=== PATIENT | female | born 1955 | race Caucasian/White ===

== ENCOUNTER 2020-11-19 06:34 | Day surgery (SDC) | payer MEDICARE, BC ==
[~2020-11-19] VITALS: Ht 165.1 cm; Wt 90.9 kg
[~2020-11-19 06:34] MED LIST: ACETYL L-CARNI1 EACH PO; ACIPHEX20 MG PO; ALEVE220 M1 PO; CLINDAMYCIN HC150 MG PO; FOLGARD TABLET1 EAC1 PO; FOLTX TABLET1 EAC1 PO; NEXIUM20 MG PO
[2020-11-19] MEDS ORDERED: B COMPLEX1 EACH PO (06:52)
[2020-11-19] MEDS ORDERED: ZINC30 M1 PO (06:52)
[2020-11-19] MEDS ORDERED: VITAMIN A2400 MCG PO (06:52)
[2020-11-19] MEDS ORDERED: VITAMIN D3125 MCG PO (06:54)
--- NOTE | 2020-11-19 09:11 | NUR ---
11/19/20 0911 Nona Devlin 0905-PATIENT ARRIVED TO PACU ON 6L MASK NONAROUSABLE. RN HOLDING AIRWAY TO MAINTAIN OPEN RR EVEN. SR. 6 LAP SITES TO ABDOMEN CDI WITH STERI STRIPS IN PLACE. IVF INFUSING 0908-PATIENT REMAINS NONAROUSABLE MAINTAINING OWN AIRWAY. RR EVEN. 6L MASK
[2020-11-19] MEDS ORDERED: OXYCODON-ACETA1 EAC2 PO (09:24)
[2020-11-19] MEDS ORDERED: IBUPROFEN600 MG PO (09:24)
[2020-11-19] MEDS ORDERED: ACETAMINOPHEN500 MG PO (09:25)
--- NOTE | 2020-11-19 09:49 | NUR ---
ICED WATER AND APPLESAUCE GIVEN. CALL LIGHT IS WITHIN REACH. SPOUSE IS AT BEDSIDE.
--- NOTE | 2020-11-19 09:55 | NUR ---
OR STAFF WAITING TO TAKE PT. HAD JUST A MOMENT WITH PT AND SPOUSE TITA. PT SEEMS PREPARED, ALL QUESTIONS ASKED ANSWERED. PT REQUESTED PRAYER, WILL FOLLOW NEEDED
--- NOTE | 2020-11-19 10:48 | NUR ---
PATIENT IS RESTING QUIETLY WITH HER EYES CLOSED WHEN I ENTER THE ROOM. SHE WAKES EASILY WITH VITAL SIGNS, SPLINTS WELL WITH THE ABDOMINAL PILLOW AND IS RESTING QUIETLY UPON MY DEPARTURE. OXYGEN IS TURNED OFF. CONTINUOUS PULSE OXIMETER REMAINS IN PLACE. CALL LIGHT IS WITHIN REACH.
--- NOTE | 2020-11-19 11:49 | NUR ---
PATIENT IS UP TO THE BATHROOM, GUARDED. SHE AMBULATES WELL WITH HER 'S ASSISTANCE AND VOIDS 300 ML OF CLEAR, YELLOW URINE. DISCHARGE INSTRUCTIONS ARE GIVEN AND SHE AND HER VERBALIZE UNDERSTANDING. PATIENT IS GETTING DRESSED IN THE PRESENCE OF HER .
--- NOTE | 2020-11-19 12:18 | NUR ---
LE 1200: PATIENT IS DRESSED AND TRANSFERS HERSELF TO THE WHEELCHAIR AND THEN TO PERSONAL VEHICLE AND SHE TOLERATES THAT WELL.
--- NOTE | 2020-11-22 11:08 | PATH ---
[facility] [address], [place] [address] Signed SPECIMEN(S): A GALLBLADDER SPECIMEN(S): B LIVER BIOPSY SPECIMEN SOURCE: A. GALLBLADDER B. LIVER BIOPSY CLINICAL HISTORY: Chronic cholecystitis FINAL PATHOLOGIC DIAGNOSIS: A. Gallbladder, cholecystectomy (previously incised): - Chronic cholecystitis. B. Liver, needle core biopsy: - Mild steatohepatitis (ITA grade 4 of 9, ITA fibrosis stage 1a of 4). - See description and comment. COMMENT: Additional clinical history regarding the liver biopsy is not provided. However, the histopathology is most consistent with a mildly active steatohepatitis. Steatohepatitis is a nonspecific pattern of injury seen most commonly in the settings of morbid obesity, diabetes, insulin resistance or alcohol abuse. However, the differential diagnosis is broad, and also includes drug reaction, genetic abnormalities, metabolic conditions and malnutrition. Clinical correlation is required in this case. AMB:em:C2NR MICROSCOPIC EXAMINATION: A. Histologic sections of all submitted blocks are examined by light microscopy. These findings, together with the gross examination, support the pathologic diagnosis. B. A biopsy of intact hepatic tissue is reviewed, demonstrating moderate, predominantly large droplet steatosis, with rare foci of small droplet steatosis. Scattered portal tracts are present without evidence of significantly increased periportal inflammation, bile ductular abnormalities or granulomata. The hepatocytes demonstrate a mild degree of ballooning degeneration without evidence of Carmen-Denk bodies. Rare foci of lobular inflammation (predominantly lymphocytes) are also detected. Trichrome and reticulin stains highlight minimally increased pericellular fibrosis. Iron stain PATIENT NAME: MADISON GONZALEZ PATHOLOGY DATE OF : 53 REPORT #: [id number] PHYSICIAN: JAMAICA FERGUSON PCP: DARIUSZ BACH MD REPORT IS CONFIDENTIAL AND NOT TO BE RELEASED WITHOUT AUTHORIZATION [facility] [address], [place] [address] Signed reveals no evidence of increased hepatocellular iron deposition, and PAS with diastase reveals no evidence of intracellular inclusions. Overall, the findings are consistent with mild steatohepatitis, with a non-alcoholic fatty liver disease activity score (ITA) of 4/9, and fibrosis stage 1a/4. AMB:[facility] GROSS DESCRIPTION: Two specimens are received in two containers, labeled "CM." A. The specimen, labeled "CM, A," is received in formalin and consists of: Specimen: Previously incised gallbladder. Dimensions: Upon reconstruction, 4.5 x 2.2 x 2.1 cm. Serosa: Garsia-white, smooth, and glistening. Cystic Duct: 0.4 cm in diameter, patent, and the margin is inked blue. Calculi: Absent within specimen and specimen container. Mucosa: Garsia, velvety, and glistening. Wall thickness: Uniform and 0.2 cm. Lymph node: No pericystic lymph nodes are grossly identified. Additional: None. Food Handler sections are submitted in cassette (A1). B. The specimen, labeled "CM, B," and designated on the requisition "liver biopsy," is received in formalin and consists of one, yellow-orange, 0.1 cm in diameter, 2.2 cm long soft tissue core. The core is inked with eosin and submitted in toto in one cassette (B1). AI (under the direct supervision of a pathologist) The Gross Description was prepared using a voice recognition system. The report was reviewed for accuracy; however, sound-alike word errors, addition and/or deletions may occur. If there is any question about this report, please contact Client Services. PERFORMING LABORATORY: The technical component was performed by [email or web address], [address] [place] [id number] (Electric Golf Cart Repairer: Carley Del Toro MD; CLIA# [id number]). Professional interpretation was performed by [email or web address], [address] [id number] (Electric Golf Cart Repairer: Master Lynch M.D.; CLIA#: [id number]). Diagnostician: Carley Del Toro MD Pathologist Electronically Signed 11/22/2020 PATIENT NAME: MADISON GONZALEZ PATHOLOGY DATE OF : 53 REPORT #: [id number] PHYSICIAN: JAMAICA FERGUSON PCP: DARIUSZ BACH MD REPORT IS CONFIDENTIAL AND NOT TO BE RELEASED WITHOUT AUTHORIZATION [facility] [address] [place] [id number] Signed Copies: ~ PATIENT NAME: MADISON GONZALEZ PATHOLOGY DATE OF : 53 REPORT #: [id number] PHYSICIAN: JAMAICA PATHOLOGY PCP: DARIUSZ BACH MD REPORT IS CONFIDENTIAL AND NOT TO BE RELEASED WITHOUT AUTHORIZATION
--- NOTE | 2020-11-23 13:48 | OR ---
[facility] [address] [place], [place] [address] Signed DATE OF OPERATION: 11/19/2020 SURGEON: Ya Hart MD PREOPERATIVE DIAGNOSIS: Chronic acalculous cholecystitis. POSTOPERATIVE DIAGNOSES: 1. Chronic acalculous cholecystitis. 2. Mild hepatic nodularity. PROCEDURES: 1. Laparoscopic cholecystectomy with intraoperative cholangiogram. 2. Surgeon-directed fluoroscopy. 3. Laparoscopic liver biopsy. ANESTHESIA: General endotracheal; Lam Jacinto, CONTROL SYSTEMS SPECIALIST and local 0.25% Marcaine with epinephrine 20 mL. INDICATION: This 65-year-old white woman is a patient of Dr. Bach initially referred for consideration of possible parathyroid adenoma. The parathyroid adenoma has not been confirmed and operation has not yet been done though ongoing observation and studies are underway. The patient has been noted to have biliary symptoms including right subcostal pain following meals. A gallbladder ultrasound was found to be normal without sign of stones. A CCK-HIDA test was performed showing an ejection fraction of 28% with mild reproduction of her right subcostal pain symptoms. On the basis of these findings, it is highly likely she does say have acalculous cholecystitis for which a cholecystectomy was recommended. The risks of bleeding, infection, bile duct injury, need for open procedure, need for common duct exploration and the possibility of failure to improve her symptoms were all reviewed with her. She understands and wished to proceed. FINDINGS: The gallbladder was chronically inflamed. There were omental adhesions to the undersurface of the gallbladder. The gallbladder once excised had cholesterolosis and chronic inflammatory change of the mucosa. There were no stones. Cholangiogram was normal. Additionally, the liver had a somewhat micronodular appearance not advanced cirrhosis by any means, but likely was disease and on that basis, liver biopsy was obtained Electronically Signed By: YA HART MD 11/23/20 1348 PATIENT NAME: MADISON GONZALEZ OPERATIVE REPORT DATE OF : 53 REPORT #: [id number] PHYSICIAN: YA HART MD PCP: DARIUSZ BACH MD REPORT IS CONFIDENTIAL AND NOT TO BE RELEASED WITHOUT AUTHORIZATION [facility] [address] [place], [place] [address] Signed additionally. DESCRIPTION OF PROCEDURE: The patient was brought to the operating room, given a general endotracheal anesthetic. Preoperative antibiotic Ancef was given. Sequential compression device stockings were used and heparin subcutaneously administered. The abdomen is prepared with chlorhexidine solution and draped sterilely. An infraumbilical incision was made and using an open Nida cannula technique, the abdomen was entered and pneumoperitoneum achieved to a level of 14 mmHg of carbon dioxide gas. Intraabdominal inspection showed no sign of ascites or carcinomatosis. The liver had a somewhat nodular appearance and only mild fatty infiltration. Three additional trocars were placed in usual configuration in the subxiphoid, right midclavicular, and right anterior axillary line. The gallbladder was elevated cephalad and found to have omental adhesions stuck to the undersurface, which were taken down with blunt and electrocautery dissection. Further elevation of the gallbladder was undertaken and dissection was undertaken in the triangle of Calot. The entry into the infundibulum was noted. Spillage of clear bile without stones was also noted. The defect was grasped with instrument allowing for occlusion of the leak and ongoing dissection. Ultimately, the cystic duct was well defined and a clip was then applied across the gallbladder, cystic duct junction and a transverse choledochotomy made in the cystic duct. Using an Mejia type cholangiocatheter, intraoperative cholangiography was undertaken showing free flow of contrast in biliary tree with prompt emptying into the duodenum. The biliary anatomy was conventional. There was no sign of abnormality. The catheter was removed. The cystic duct was triply clipped and divided. The gallbladder was dissected free in a retrograde fashion using electrocautery. The gallbladder was placed in an endobag and extracted through the infraumbilical port site, opened on the back table, found to have chronic inflammatory change of the mucosa. Inspection of subhepatic space showed no sign of bile leak, bleeding or other problem. Given the appearance of the liver and without clear evidence of underlying hepatic risk factor, the liver biopsy was deemed appropriate. The medial segment of left lobe was deemed as appropriate for biopsy site. A percutaneous application of a 14-gauge Biopty gun needle was passed and a biopsy was undertaken. Bleeding from the site was secured with electrocautery and ultimately with some Tisseel as it had persistent oozing. The specimen was considered good and passed for permanent pathology. Excess irrigation of fluid was suctioned free. Removal of the epigastric trocar site showed oozing of blood. Electrocautery was used in this area and a small amount of Tisseel, but there was still some oozing and on that basis, a Danish-Ilana device was used to secure the site with a 0 Vicryl tie. This allowed for complete hemostasis. The excess irrigation fluid and blood were suctioned free and the other trocars were removed without problem. The infraumbilical fascial site was reapproximated with interrupted 0 Vicryl suture and a running 0 PDS suture. Irrigation was undertaken each site and 20 mL of 0.25% Marcaine Electronically Signed By: YA HART MD 11/23/20 7418 PATIENT NAME: MADISON GONZALEZ OPERATIVE REPORT DATE OF : 53 REPORT #: [id number] PHYSICIAN: YA HART MD PCP: DARIUSZ BACH MD REPORT IS CONFIDENTIAL AND NOT TO BE RELEASED WITHOUT AUTHORIZATION [address], [place] [address] Signed with epinephrine was injected locally. The skin was closed with interrupted 3-0 Vicryl. Steri-Strips were applied. She was ultimately extubated and transferred to the recovery room in good condition having suffered no complications. Sponge, needle, and instrument counts were reported as correct x3. MD TEN Marks/KAYLYNN /[id number] cc: Dariusz Bach MD Copies: DARIUSZ BACH MD ~ Electronically Signed By: YA HART MD 11/23/20 1348 PATIENT NAME: MADISON GONZALEZ OPERATIVE REPORT DATE OF : 53 REPORT #: [id number] PHYSICIAN: YA HART MD PCP: DARIUSZ BACH MD REPORT IS CONFIDENTIAL AND NOT TO BE RELEASED WITHOUT AUTHORIZATION
== END 2020-11-19 12:00 | disposition home or self-care (01) ==
LOC: DS 06:34
PROVIDERS: ATTEND Surgery
PROC: BF13YZZ Fluoroscopy of Gallbladder and Bile Ducts using Other Contrast (ICD-10-PCS; 2020-11-19)
PROC: 0FB24ZX Excision of Left Lobe Liver, Percutaneous Endoscopic Approach, Diagnostic (ICD-10-PCS; 2020-11-19)
PROC: 0FT44ZZ Resection of Gallbladder, Percutaneous Endoscopic Approach (ICD-10-PCS; principal; 2020-11-19 06:45)
DX: K81.1 Chronic cholecystitis (principal); K75.81 Nonalcoholic steatohepatitis (NASH); K82.8 Other specified diseases of gallbladder; K21.9 Gastro-esophageal reflux disease without esophagitis; M89.8X9 Other specified disorders of bone, unspecified site; E66.9 Obesity, unspecified; Z68.32 Body mass index [BMI] 32.0-32.9, adult; Z88.8 Allergy status to other drugs, medicaments and biological substances
CPT/HCPCS: 00790; 74300; 88304; 88307; 88313; J0690; J1100; J1644; J1885; J2001; J2405; J2550; J2704; J3010; J7121; Q9967

== ENCOUNTER 2023-05-28 08:41 | Inpatient (IN) | payer MEDICARE, BC ==
[~2023-05-28] VITALS: Ht 165.1 cm; Wt 88.6 kg
[~2023-05-28 08:41] MED LIST changes: +ACETAMINOPHEN500 MG PO; +B COMPLEX1 EACH PO; +IBUPROFEN600 MG PO; +OXYCODON-ACETA1 EAC2 PO; +VITAMIN A2400 MCG PO; +VITAMIN D3125 MCG PO; +ZINC30 M1 PO
[2023-06-02] MEDS ORDERED: FOSAMAX70 MG PO (14:09)
[2023-06-02 14:20] VITALS: BP 119/73
[2023-06-04] MEDS ORDERED: ATORVASTATIN CA80 MG PO (10:05)
[2023-06-04] MEDS ORDERED: DICLOFENAC SODI50 GM TOP (10:06)
[2023-06-04] MEDS ORDERED: MELATONIN3 MG PO (10:06)
[2023-06-17 06:20] VITALS: BP 134/73
[2023-06-17 12:20] VITALS: BP 130/69
[2023-06-17 14:08] VITALS: BP 129/64
[2023-06-17 15:30] VITALS: BP 140/65
[2023-06-17 16:52] VITALS: BP 118/60
[2023-06-17 19:47] VITALS: BP 134/57
[2023-06-18 01:02] VITALS: BP 137/64
[2023-06-18 05:14] VITALS: BP 125/57
[2023-06-18 05:48] LABS: ANION GAP 14.3 (7-21); BUN/CREATININE RATIO 13.09 (6.0-28.6); CALCIUM 9.6 mg/dL (8.5-10.1); CREATININE, SERUM 0.84 mg/dL (0.55-1.02); POTASSIUM 4.3 mmol/L (3.5-5.1)
[2023-06-18 10:10] VITALS: BP 136/64
[2023-06-18 14:25] VITALS: BP 131/62
[2023-06-18 18:08] VITALS: BP 138/64
[2023-06-18 20:02] VITALS: BP 144/68
[2023-06-19 04:48] VITALS: BP 140/61
[2023-06-19 09:43] VITALS: BP 158/70
[2023-06-19 13:48] VITALS: BP 156/74
[2023-06-19 14:46] LABS: PARATHYROID HORMONE,INTACT 59 pg/mL (15-65)
[2023-06-19] MEDS ORDERED: ACETAMINOPHEN500 MG PO (15:35)
--- NOTE | 2023-06-21 08:44 | PATH ---
[facility] [address], [place] [address] Signed SPECIMEN(S): A LEFT LOWER FOLD PARATHYROID SPECIMEN(S): B RIGHT LOWER POLE PARATHYROID SPECIMEN(S): C RIGHT POLE PARATHYROID SPECIMEN(S): D LEFT LOWER POLE LYMPTH NODE SPECIMEN(S): E LEFT THYROID LOBE SPECIMEN(S): F CAROTID SHEATH SPECIMEN(S): G SUPERIOR THYMUS NODULE SPECIMEN SOURCE: A. LEFT LOWER FOLD PARATHYROID B. RIGHT LOWER POLE PARATHYROID C. RIGHT POLE PARATHYROID D. LEFT LOWER POLE LYMPTH NODE E. LEFT THYROID LOBE F. CAROTID SHEATH G. SUPERIOR THYMUS NODULE FROZEN SECTION DIAGNOSIS: A. left lower fold normal parathyroid: Lymphoid tissue; no parathyroid present. (Hola Gutierrez M.D., 06/17/2023, [id number]) Frozen section diagnoses called to Dr. Alves at [phone]. [facility], [facility] [place] [address] B. The specimen, labeled and designated "Johnny, B" and designated on the requisition "right lower pole parathyroid," is received fresh for frozen section and consists of fragment of peraza soft tissue measuring 0.3 cm in greatest dimension and weighing 0.02 g. The specimen is submitted entirely for frozen section diagnosis. The frozen section remnant is submitted in cassette B1. B. right lower pole parathyroid: Cellular parathyroid tissue. (Hola Gutierrez M.D., 06/17/2023, [id number]) Frozen section diagnoses called to Dr. Alves at 1158. [facility], [address] [place] [address] C. The specimen, labeled and designated "Johnny, probable right pole parathyroid adenoma," is received fresh for frozen section and consists of fragment of peraza soft tissue measuring 0.8 cm in greatest dimension and weighing 0.08 g. The tissue is submitted entirely for frozen section diagnosis. The frozen section remnant is submitted in cassette C1. C. probable right pole parathyroid adenoma: Cellular parathyroid tissue. (Hola Gutierrez M.D., 06/17/2023, [id number]) PATIENT NAME: MADISON GONZALEZ PATHOLOGY DATE OF : 53 REPORT #: [id number] PHYSICIAN: JAMAICA FERGUSON PCP: QUENTIN SEVILLA MD REPORT IS CONFIDENTIAL AND NOT TO BE RELEASED WITHOUT AUTHORIZATION [facility] [address], [place] [address] Signed Frozen section diagnoses called to Dr. Alves at 1018. [facility], [address] [place] [address] D. The specimen, labeled and designated "Johnny, Brian" and designated on the requisition "left lower pole probable lymph node," is received fresh for frozen section and consists of a piece of peraza soft tissue measuring 0.9 cm in greatest dimension and weighing 0.10 g. D. left lower pole probable lymph node: Lymphoid tissue; no parathyroid tissue present. (Hola Gutierrez M.D., 06/17/2023, [id number]) Frozen section diagnoses called to Dr. Alves at 1024. [facility], [address] [place] [address] E. The specimen, labeled and designated "Johnny E" and designated on the requisition "left lobe of thyroid," is received in formalin and consists of a previously incised left thyroid lobe (3.0 cm superior to inferior, 2.0 cm anterior to posterior, 1.4 cm medial to lateral). The isthmic margin is inked green, the anterior lateral aspect is inked blue and the posterior medial aspect is inked black. The specimen is serially sectioned revealing red-brown unremarkable thyroid parenchyma. The specimen is submitted entirely in cassette E1-E5. F. The specimen, labeled and designated "Johnny, F" and designated on the requisition "left carotid sheath," is received in formalin and consists of a portion of yellow-peraza fatty tissue (1.4 x 0.5 x 0.4 cm). The specimen is inked blue and trisected to reveal a yellow-peraza soft cut surface. The specimen is submitted entirely in cassette F1. G. The specimen, labeled and designated "Johnny G" and designated on the requisition "superior thymus nodule," is received in formalin and consists of fragment of peraza soft tissue (0.5 x 0.4 x 0.3 cm). The tissue is inked blue and submitted in toto in cassette G1. AC (under the direct supervision of a pathologist) The Gross Description was prepared using a voice recognition system. The report was reviewed for accuracy; however, sound-alike word errors, addition and/or deletions may occur. If there is any question about this report, please contact Client Services. A. left lower fold normal parathyroid: Lymphoid tissue no parathyroid present. (Hola Gutierrez M.D., 06/17/2023, [id number]) [facility], [address] [place] [address] B. The specimen, labeled and designated "Johnny, B" and designated on the requisition "right lower pole parathyroid," is received fresh for frozen section and consists of fragment of peraza soft tissue measuring 0.3 cm in greatest dimension and weighing 0.02 g. The specimen is PATIENT NAME: MADISON GONZALEZ PATHOLOGY DATE OF : 53 REPORT #: [id number] PHYSICIAN: JAMAICA FERGUSON PCP: QUENTIN SEVILLA MD REPORT IS CONFIDENTIAL AND NOT TO BE RELEASED WITHOUT AUTHORIZATION [facility] [address] [place] [id number] Signed submitted entirely for frozen section diagnosis. The frozen section remnant is submitted in cassette B1. B. right lower pole parathyroid: Cellular parathyroid tissue. (Hola Gutierrez M.D., 06/17/2023, [phone]) [facility], [address] [place] [address], [place] [address] C. The specimen, labeled and designated "Johnny, probable right pole parathyroid adenoma," is received fresh for frozen section and consists of fragment of peraza soft tissue measuring 0.8 cm in greatest dimension and weighing 0.08 g. The tissue is submitted entirely for frozen section diagnosis. The frozen section remnant is submitted in cassette C1. C. probable right pole parathyroid adenoma: Cellular parathyroid tissue. (Hola Gutierrez M.D., 06/17/2023, [id number]) [facility], [facility] [place] [address] D. The specimen, labeled and designated "Johnny, D" and designated on the requisition "left lower pole probable lymph node," is received fresh for frozen section and consists of a piece of peraza soft tissue measuring 0.9 cm in greatest dimension and weighing 0.10 g. D. left lower pole probable lymph node: Lymphoid tissue no parathyroid tissue present. (Hola Gutierrez M.D., 06/17/2023, [id number]) [facility], [address] [facility], [place] [address] E. The specimen, labeled and designated "Johnny, E" and designated on the requisition "left lobe of thyroid," is received in formalin and consists of a previously incised left thyroid lobe (3.0 cm superior to inferior, 2.0 cm anterior to posterior, 1.4 cm medial to lateral). The isthmic margin is inked green, the anterior lateral aspect is inked blue and the posterior medial aspect is inked black. The specimen is serially sectioned revealing red-brown unremarkable thyroid parenchyma. The specimen is submitted entirely in cassette E1-E5. F. The specimen, labeled and designated "Johnny, F" and designated on the requisition "left carotid sheath," is received in formalin and consists of a portion of yellow-peraza fatty tissue (1.4 x 0.5 x 0.4 cm). The specimen is inked blue and trisected to reveal a yellow-peraza soft cut surface. The specimen is submitted entirely in cassette F1. G. The specimen, labeled and designated "Johnny, G" and designated on the requisition "superior thymus nodule," is received in formalin and consists of fragment of peraza soft tissue (0.5 x 0.4 x 0.3 cm). The tissue is inked blue and submitted in toto in cassette G1. AC (under the direct supervision of a pathologist) PATIENT NAME: MADISON GONZALEZ PATHOLOGY DATE OF : 53 REPORT #: [id number] PHYSICIAN: JAMAICA FERGUSON PCP: QUENTIN SEVILLA MD REPORT IS CONFIDENTIAL AND NOT TO BE RELEASED WITHOUT AUTHORIZATION [facility] [address], [place] [address] Signed The Gross Description was prepared using a voice recognition system. The report was reviewed for accuracy; however, sound-alike word errors, addition and/or deletions may occur. If there is any question about this report, please contact Client Services. FINAL PATHOLOGIC DIAGNOSIS: A. "Left lower fold parathyroid": - Lymphoid tissue; no parathyroid tissue present B. "Right lower pole parathyroid": - Benign parathyroid tissue C. "Right pole parathyroid": - Benign cellular parathyroid tissue D. "Left lower pole lymph node": - Lymphoid tissue; no parathyroid tissue present E. Thyroid, left lobe, lobectomy: - Benign thyroid tissue with no significant pathologic changes F. "Left parotid sheath": - Benign fibrovascular and adipose tissue with no significant pathologic changes G. "Superior thymus nodule": - Fibroadipose tissue with no significant pathologic changes BRP MICROSCOPIC EXAMINATION: Histologic sections of all submitted blocks are examined by light microscopy. These findings, together with the gross examination, support the pathologic diagnosis. GROSS DESCRIPTION: A. The specimen, labeled and designated "Johnny, Kat" and designated on the requisition "left lower fold normal parathyroid," is received fresh for frozen section and consists of three fragments measuring up to 0.4 cm in greatest dimension and weighing 0.05 g. The tissue is submitted entirely for frozen section diagnosis. The frozen section remnant is submitted in cassette A1. ADDITIONAL NOTES: Immunohistochemical and/or in situ hybridization studies if performed in this case included appropriate positive controls that reacted as expected. This test was developed and its performance characteristics determined by [facility]. It has not been cleared or approved by the U.S. Food and Drug Administration. The FDA has determined that PATIENT NAME: MADISON GONZALEZ PATHOLOGY DATE OF : 53 REPORT #: [id number] PHYSICIAN: JAMAICA FERGUSON PCP: QUENTIN SEVILLA MD REPORT IS CONFIDENTIAL AND NOT TO BE RELEASED WITHOUT AUTHORIZATION [facility] [address] [facility] [place] [address] Signed such clearance or approval is not necessary. This test is used for clinical purposes. It should not be regarded as investigational or for research. [facility] is certified under the Clinical Laboratory Improvement Amendments of 1988 (CLIA) as qualified to perform high complexity clinical laboratory testing. PERFORMING LABORATORY: Technical component was performed by [facility], [address] [place] [address] (CLIA# [id number]). Professional interpretation was performed by [facility], [address] [place] [address] (CLIA#: [id number]). Diagnostician: Hola Gutierrez MD Pathologist Electronically Signed 06/21/2023 Copies: ~ PATIENT NAME: MADISON GONZALEZ PATHOLOGY DATE OF : 53 REPORT #: [id number] PHYSICIAN: JAMAICA PATHOLOGY PCP: QUENTIN SEVILLA MD REPORT IS CONFIDENTIAL AND NOT TO BE RELEASED WITHOUT AUTHORIZATION
--- NOTE | 2023-06-22 14:14 | OR ---
[facility] [address], [place] [address] Signed DATE OF OPERATION: 06/17/2023 SURGEON: Ya Hart MD PREOPERATIVE DIAGNOSES: Persistent hyperparathyroidism, probable parathyroid adenoma non-localized by multiple imaging studies. POSTOPERATIVE DIAGNOSES: Probable right upper pole parathyroid adenoma; normal right lower pole parathyroid and left upper pole parathyroid and non-localization of left lower pole parathyroid. PROCEDURES: 1. Parathyroid exploration with excision of right upper pole parathyroid and biopsy of right lower pole parathyroid tissue. 2. Identification and marking without biopsy left upper pole parathyroid gland. 3. Excision of inferior portion of left thymus tissue, exploration of left carotid sheath with excision of fatty tissue of carotid sheath. 4. Left thyroid lobectomy. ANESTHESIA: General endotracheal, Jacques Kennedy CRNA. LEATHER HEEL BREASTER: Nurse (Valorie Sewell RN). INDICATION: This 67-year-old white woman is a former patient of Dr. Patricia López and was found to have hypercalcemia with elevated parathyroid hormone level. Initial evaluation more than two years ago included a sestamibi scan, which identified a probable right lower pole parathyroid adenoma, though this was not entirely clear. She has had normal serum calcium from time to time, is noted to have osteoporosis but has had ionized calcium elevated in addition to elevated parathormone level consistent with hyperparathyroidism. She has never had nephrolithiasis. She has vague bone pain. She also has vague abdominal pain. Over the past two years, she has been closely monitored and several imaging tests have been undertaken including CT scan, ultrasound, repeat sestamibi scan, and more recently a "4D" multiphase parathyroid scan. Interpretation of that scan performed in the [facility] included a possible nodule of the right lobe of the thyroid, a prominent left Electronically Signed By: YA HART MD 06/22/23 1414 PATIENT NAME: MADISON GONZALEZ OPERATIVE REPORT DATE OF : 53 REPORT #: [id number] PHYSICIAN: YA HART MD PCP: QUENTIN SEVILLA MD REPORT IS CONFIDENTIAL AND NOT TO BE RELEASED WITHOUT AUTHORIZATION [facility] [address], [place] [address] Signed level 4 cervical lymph node, an ovoid enhancing lesion anterior to the "great vessels" measuring 9 mm. It was thought that lesion represented a lymph node. After much consideration, the patient is offered parathyroid exploration with excision of parathyroid adenoma if it can be identified. The patient and her understand the risk of this particular operation including but not limited to bleeding, infection, cosmetic deformity, but most importantly failure to identify the parathyroid adenoma considering the elusive nature of its appearance on imaging studies. I have reviewed the various possibilities during the course of operation which might include thyroidectomy, partial or complete for an intrathyroidal parathyroid adenoma if it is deemed advisable. Understanding the various risks including those related to recurrent laryngeal nerve injury and other unforeseen complications, she wishes to proceed. FINDINGS: The thyroid did generally speaking was rather small. The right lobe was bigger than the left. Initial evaluation showed obvious parathyroid tissue in the inferior pole on the left side as manifested by the vascular supply and its characteristic peraza appearance. A left upper pole gland was additionally identified, which is far larger than the inferior pole, which was thought likely to be the adenoma. Exploration on the left side identified clearly the left upper pole parathyroid gland which was small as was the right lower pole gland, but identification of a left lower pole parathyroid gland was not forthcoming. Extensive dissection was undertaken in the superior thymus area, the tracheoesophageal groove, the tissue in the retroesophageal area near the spine, the carotid sheath, for which some soft tissue was excised. By the end of procedure, it was deemed most likely that the right upper pole gland was an adenoma. It was confirmed on frozen pathology to be parathyroid tissue as was a partial biopsy of the right lower pole also considered parathyroid tissue. Another small nodule was reliably likely lymph tissue. Of special note, the left recurrent laryngeal nerve was identified throughout the course of the extensive dissection on the left side and showed no sign of injury or other problem. Additionally, a left thyroid lobectomy was performed on the unlikely possibility of an intrathyroidal lesion though transecting the specimen did not identify an adenoma from what I could see. DESCRIPTION OF PROCEDURE: The patient was brought to the operating room, given a general endotracheal anesthetic. A Martines catheter was placed. Preoperative antibiotic Ancef was given. Sequential compression device stockings were used. A shoulder roll was placed and gentle neck extension undertaken. Arms were at the side. A jose lounge position was maintained. The neck was prepared with a chlorhexidine solution and draped sterilely. A natural skin crease was used for the incision. It was marked and an incision made with a 15 Electronically Signed By: YA HART MD 06/22/23 1414 PATIENT NAME: MADISON GONZALEZ OPERATIVE REPORT DATE OF : 53 REPORT #: [id number] PHYSICIAN: YA HART MD PCP: QUENTIN SEVILLA MD REPORT IS CONFIDENTIAL AND NOT TO BE RELEASED WITHOUT AUTHORIZATION [facility] [address] [place] [id number] Signed blade dissection through the dermis securing bleeding with electrocautery. Subcutaneous fat was divided as was the platysmal layer with electrocautery. Superior and inferior flaps were developed with blunt electrocautery dissection. Gelpi retractors were placed. The midline strap muscles were incised longitudinally. Exploration was undertaken on the right side 1st. Sharp dissection was used to free the sternohyoid and subsequently sternothyroid muscles from the underlying thyroid tissue. The thyroid capsule was well visualized and loose areolar tissue to the right of the thyroid was transected with sharp dissection. Middle thyroidal veins were ligated with 4-0 silk ties and allowing for progressive rotation of the thyroid towards the midline. Dissection of the loose areolar tissue down to the cervical spine was undertaken. Once excellent mobilization of the right thyroid lobe was complete, exploration was more fully undertaken looking for parathyroid tissue. The inferior thyroid artery was identified and inferior to it and anterior in the lower pole of the thyroid gland thyroid tissue was easily identified. This was quite obviously parathyroid tissue and at 1st thought possibly a bit enlarged, but with further dissection less likely in fact. The vascular supply to the gland was easily identified and certainly unharmed. Identification on the posterior superior aspect of the upper lobe on the right was undertaken. Ultimately, a much larger gland was noted and although not blunted as is typical of most parathyroid adenomas was clearly the superior parathyroid gland and thought most likely the adenoma itself. Its blood supply was left in tact for the time being. As it was not certainly the upper pole adenoma, exploration on the left side was warranted. With similar technique, the left thyroid lobe was exposed reflecting the strap muscles laterally. The left thyroid lobe was quite a bit smaller. It did not have palpable nodularity particularly and was not pathologic other than being small. Dissection was carried in a similar way to allow for mobilization of the left gland medially. The upper pole parathyroid gland was quite small and gently with Jakes hemostat from surrounding thyroid capsule and the vascular supply identified. Biopsy of this gland was deemed inadvisable given its small size and mindful of a high probability of vascular injury. The gland was then marked with a 6-0 Prolene suture for future reference. Attention was turned towards inferior left pole dissection. Using blunt and meticulous sharp dissection, the inferior thyroid artery was identified and the soft tissue inferior and medial to it was dissected free. No obvious parathyroid tissue was identified at that time. The small area probably considered a fatty tissue or possibly lymph tissue was dissected free and sent for pathology as possible left lower pole parathyroid gland, though it was disproved as parathyroid tissue by frozen pathology at that point. Further dissection was undertaken posteriorly. Palpation in the tracheoesophageal groove revealed no palpable mass. The carotid sheath externally was palpated without nodule. The spine itself was easily identified and examined and there was no sign of abnormality in this area. Dissection was taken inferiorly to the Electronically Signed By: YA HART MD 06/22/23 1414 PATIENT NAME: MADISON GONZALEZ OPERATIVE REPORT DATE OF : 53 REPORT #: [id number] PHYSICIAN: YA HART MD PCP: QUENTIN SEVILLA MD REPORT IS CONFIDENTIAL AND NOT TO BE RELEASED WITHOUT AUTHORIZATION [facility] [address], [place] [address] Signed left thyroid lobe into the thymus tissue itself. Blunt dissection was undertaken with meticulous care, ultimately the left recurrent laryngeal nerve was identified. It was certainly unharmed. There was a small fatty appearing globule near it which was dissected free, most likely representing thymus tissue and subsequently later sent as thymus tissue. Further dissection in the thymus reveals no obvious palpable mass or lesion. Extension of the dissection to the midline trachea medially identifying additional thymus tissue was undertaken again identifying no clear identified focus of parathyroid tissue. Mindful that the carotid sheath did incorporate a parathyroid adenoma. It was incised with all due care identifying the carotid artery as well as the vagal nerve. This was left in situ of course and some fatty tissue associated with the sheath was excised. Clips were applied to the root of it though unlikely was it actually parathyroid tissue anyway. Further dissection in the tracheoesophageal groove showed no sign of abnormality. On the possibility the lesion was intrathyroidal on the left, consideration was made for left thyroid lobectomy. At this point, a biopsy was obtained of the right lower pole parathyroid gland and excision of the left upper pole gland considered most likely to be the adenoma. The base of the gland at the artery was secured with a clip. Frozen pathology confirmed both the right inferior pole biopsy to be parathyroid tissue as well as the entire gland that was excised in the right upper pole to be parathyroid tissue. Reconsideration of the uncertain left lower pole parathyroid location was made, although the carotid sheath, the tracheoesophageal groove and the retroesophageal area had no palpable or visible abnormality and no palpable abnormality of the left neck thymus tissue. Consideration was made for left thyroid lobectomy. As the gland was small and already almost completely mobilized, it was deemed advisable to excise the left thyroid gland on the possibility of an intrathyroidal adenoma. The superior polar vessels were secured with 4-0 silk ties as was the inferior aspect and using an extracapsular technique of Davis, the residual right upper pole parathyroid gland left in situ. Excision of the gland flushed with the trachea was accomplished without problem. The recurrent laryngeal nerve had been seen and unharmed throughout the course of left-sided neck dissection. Transection of the thyroid tissue showed no sign of adenoma within it, it is noted. Irrigation was undertaken. A small amount of Jayne was applied to the raw surface in the left thymus area and elsewhere. Plans were then made for closure. The midline strap muscles were reapproximated with interrupted 3-0 Vicryl suture. The platysmal Electronically Signed By: YA HART MD 06/22/23 1414 PATIENT NAME: MADISON GONZALEZ OPERATIVE REPORT DATE OF : 53 REPORT #: [id number] PHYSICIAN: YA HART MD PCP: QUENTIN SEVILLA MD REPORT IS CONFIDENTIAL AND NOT TO BE RELEASED WITHOUT AUTHORIZATION [address] [address] Signed layer was similarly reapproximated and skin closed with running subcuticular 4-0 Vicryl. Steri-Strips were applied as was Acticoat dressing. She was extubated without incident, taken to recovery room in good condition having suffered no known complications. The operation was rather prolonged, lasting more than 3 hours in total. MD TEN Marks/KAYLYNN /[id number] cc: MD Yessenia Manzo MD [place], JAKE López MD Copies: QUENTIN SEVILLA MD, LOHITH MD ~ Electronically Signed By: YA HART MD 06/22/23 1414 PATIENT NAME: LISAMADISON OPERATIVE REPORT DATE OF : 53 REPORT #: [id number] PHYSICIAN: YA HART MD PCP: QUENTIN SEVILLA MD REPORT IS CONFIDENTIAL AND NOT TO BE RELEASED WITHOUT AUTHORIZATION
--- NOTE | 2023-06-22 14:14 | DS ---
[facility] [address], [place] [address] Signed ADMISSION DATE: 06/17/2023 DISCHARGE DATE: 06/19/2023 REASON FOR ADMISSION: Presumed parathyroid adenoma. HISTORY OF PRESENT ILLNESS: This 67-year-old white woman is a former patient of Dr. Dariusz Bach found in 2019 to have hypercalcemia with elevated parathormone level highly indicative of probable parathyroid adenoma. Initial evaluation more than two years ago included a sestamibi scan, which identified a possible right lower pole parathyroid adenoma, though that was not entirely clear. She has had normal serum calcium from time to time, does have morbidity related to osteoporosis, but never nephrolithiasis. She has vague abdominal pain symptoms as well and vague bone pain and confirmed to have osteoporosis on scanning. Over the past two years, she has been closely monitored with several imaging tests have undertaken including CT scan, ultrasound, repeat sestamibi scan, and more recently a "4D" multiphase parathyroid scan in [facility]. Still a finding of a parathyroid adenoma has been elusive. After much consideration, the patient is offered parathyroid exploration with excision of parathyroid adenoma if identified. She is admitted on that basis. PERTINENT PHYSICAL EXAMINATION: GENERAL: Pleasant white woman without sign of distress. Trachea is midline. She has no palpable mass of the thyroid or nearby. There is no adenopathy. CHEST: Clear. HEART: Regular, without murmur. ABDOMEN: Soft, nontender. EXTREMITIES: Without clubbing, cyanosis, or edema. HOSPITAL COURSE: On June 17, 2023, the patient underwent neck exploration. This included identification of a probable right upper pole parathyroid adenoma; the parathyroid was enlarged in comparison to an easily identified right lower pole parathyroid gland and a very small left upper pole gland. Identification of the left lower pole parathyroid could not be identified and on that basis, extensive exploration was undertaken which included exploration within the tracheoesophageal groove, the retroesophageal area, the thymus, and even the carotid sheath. Subsequent left thyroid lobectomy was undertaken on the possibility of the lesion was within the thyroid gland, though on gross sectioning in the operating room, there was no such lesion identified. A postoperative calcium and PTH level was obtained. The immediate postop calcium level Electronically Signed By: YA HART MD 06/22/23 1414 PATIENT NAME: MADISON GONZALEZ DISCHARGE SUMMARY DATE OF : 53 REPORT #: [id number] PHYSICIAN: YA HART MD PCP: QUENTIN SEVILLA MD REPORT IS CONFIDENTIAL AND NOT TO BE RELEASED WITHOUT AUTHORIZATION [facility] [address], [place] [address] Signed was 9.6, was rather 9.0 and the following morning, 9.6. Her PTH obtained in the early postop period was 59 (normal), though indicative this study was not available until the afternoon of Wednesday. Mindful that and as yet unidentified parathyroid adenoma may still be present and given the lack of precipitous drop in her serum calcium (too normal, but not subnormal), a sestamibi scan was performed on Wednesday this showed no evidence of parathyroid adenoma. Visualization of the left neck was optimized by absence of the left thyroid lobe obviously. She is discharged home in good condition. She has had no numbness or tingling or other signs of hypocalcemia, but at present, her serum calcium is normal and PTH is normal for the first time. It is assumed that the adenoma was resected from the right upper pole. She will return to see me in approximately a month, at which time we will obtain a calcium and PTH level and ionized calcium as well. If she should develop numbness or tingling of her lips or fingers, she will let me know at once and will be administered calcium supplement (Tums tablets). Her discharge medications will include Tylenol 1000 mg p.o. q.6 hours as needed for pain, #30. Resumption of usual medication, which includes: 1. Nexium 20 mg p.o. daily. 2. Vitamin B complex one tablet p.o. daily. 3. Zinc gluconate capsule 30 mg daily. 4. Vitamin A 400 mcg capsule, 6 capsules daily. 5. Vitamin D3 125 mcg p.o. daily. 6. Alendronate (Fosamax) 70 mg p.o. weekly. 7. Diclofenac gel as needed for joint pain. 8. Melatonin tablets 3 mg at bedtime for sleep. DISCHARGE DIAGNOSES: 1. Longstanding hypercalcemia and hyperparathyroidism, likely related to right upper pole parathyroid adenoma, now excised. 2. Status post four gland exploration including excision of right upper pole parathyroid adenoma, extensive left neck exploration including carotid sheath, retroesophageal, tracheoesophageal, left thymus and left thyroid lobectomy on June 17, 2023. Ya Hart MD Electronically Signed By: YA HART MD 06/22/23 1414 PATIENT NAME: MADISON GONZALEZ DISCHARGE SUMMARY DATE OF : 53 REPORT #: [id number] PHYSICIAN: YA HART MD PCP: QUENTIN SEVILLA MD REPORT IS CONFIDENTIAL AND NOT TO BE RELEASED WITHOUT AUTHORIZATION [facility] [address] [place] [address] Signed /MODL /[id number] cc: MD Quentin Posadas MD Sonia Afshariyamchlou, M.D. [facility] Copies: DARIUSZ BACH MD, RUSSEL J MD ~ Electronically Signed By: YA HART MD 06/22/23 1414 PATIENT NAME: MADISON GONZALEZ DISCHARGE SUMMARY DATE OF : 53 REPORT #: [id number] PHYSICIAN: YA HART MD PCP: QUENTIN SEVILLA MD REPORT IS CONFIDENTIAL AND NOT TO BE RELEASED WITHOUT AUTHORIZATION
== END 2023-06-19 16:47 | disposition home or self-care (01) | DRG 627 ==
LOC: DSVR 06-17 06:00 → MS 06-17 06:00
PROVIDERS: ADMIT Surgery; ATTEND Surgery
PROC: 07BM0ZZ Excision of Thymus, Open Approach (ICD-10-PCS; 2023-06-17)
PROC: 0GBG0ZZ Excision of Left Thyroid Gland Lobe, Open Approach (ICD-10-PCS; 2023-06-17)
PROC: 0GBR0ZX Excision of Parathyroid Gland, Open Approach, Diagnostic (ICD-10-PCS; 2023-06-17)
PROC: 0GBQ0ZZ Excision of Multiple Parathyroid Glands, Open Approach (ICD-10-PCS; principal; 2023-06-17 07:30)
PROC: 07B20ZZ Excision of Left Neck Lymphatic, Open Approach (ICD-10-PCS; 2023-06-17 07:30)
DX: D35.1 Benign neoplasm of parathyroid gland (principal); E83.52 Hypercalcemia; M81.0 Age-related osteoporosis without current pathological fracture; K21.9 Gastro-esophageal reflux disease without esophagitis; Z88.8 Allergy status to other drugs, medicaments and biological substances; Z79.899 Other long term (current) drug therapy; Z87.442 Personal history of urinary calculi; E66.9 Obesity, unspecified; Z86.010 Personal history of colon polyps; Z87.19 Personal history of other diseases of the digestive system; Z68.32 Body mass index [BMI] 32.0-32.9, adult
CPT/HCPCS: 00320; 36415; 78071; 80048; 82310; 83970; 87116; 87206; 88305; 88307; A9270; A9500; J0131; J0690; J1100; J2405; J2704; J3010; J3490; J7121

== ENCOUNTER 2023-06-04 09:43 | Day surgery (SDC) | payer MEDICARE, BC ==
[~2023-06-04] VITALS: Ht 165.1 cm; Wt 90.0 kg
[~2023-06-04 09:43] MED LIST changes: +FOSAMAX70 MG PO
[2023-06-04 09:59] VITALS: BP 126/66
[2023-06-04] MEDS ORDERED: ATORVASTATIN CA80 MG PO (10:05)
[2023-06-04] MEDS ORDERED: MELATONIN3 MG PO (10:06)
[2023-06-04] MEDS ORDERED: DICLOFENAC SODI50 GM TOP (10:06)
--- NOTE | 2023-06-04 14:11 | NUR ---
06/04/23 1411 Lilli Pitts 1346- PT ARRIVES TO PACU, LEFT LATERAL POSITION. ABD SOFT, NON DISTENDED. PT IS REACTIVE TO STIMULUS, DENIES PAIN AND NAUSEA, AND BACK TO SLEEP. O2 AT 3L PER NC, LR INFUSING TO RAC IV. ALL MONITORS APPLIED. 1403- PT AROUSES EASILY TO VOICE, PLACED ON ROOM AIR AT THIS TIME. PT DENIES PAIN AND NAUSEA. ENCOURAGED TO PASS GAS TO DECREASE CRAMPING. 1408- PT CONTINUES TO REST, SATS DOWN TO 89% ON ROOM AIR. FOLLOWS COMMANDS AND ENCOURAGED TO DEEP BREATH. SATS REMAIN 89%, PLACED BACK ON 2L O2 WHILE RESTING. WILL REASSESS.
[2023-06-04 14:33] VITALS: BP 108/70
--- NOTE | 2023-06-07 08:29 | OR ---
[facility] [address] [place], [place] [address] Signed DATE OF OPERATION: 06/04/2023 SURGEON: Ya Hart MD PREOPERATIVE DIAGNOSIS: Episodic rectal bleeding and diarrhea, history of polyps. POSTOPERATIVE DIAGNOSIS: Normal colon except for scattered diverticula. PROCEDURE: Total colonoscopy to cecum. ANESTHESIA: Intravenous sedation, fentanyl 100 mcg and Versed 4 mg. INDICATION: This 67-year-old white woman is a patient of Dr. Quentin Shin and well known to me from the past. She has undergone evaluation for hyperparathyroidism and is to undergo parathyroid exploration on June 17. She does have episodic abdominal pain, diarrhea and some episodes of rectal bleeding. On the basis of that, she was offered colonoscopy at this time. The risk of bleeding, infection, and perforation related to colonoscopy were reviewed with her, she understands and wished to proceed. FINDINGS: The prep was good. Complete colonoscopy was undertaken to the cecum without question. She had a few scattered diverticula of the sigmoid, but no sign of polyps, colitis, cancer, or other abnormality. There was no sign of hemorrhoids. PROCEDURE IN DETAIL: The patient was brought to the endoscopy suite and placed in lateral decubitus position, given intravenous sedation to the point of slurred speech and nystagmus. Digital rectal examination was normal. An Olympus video colonoscope was passed in the rectum and manipulated throughout the colon ultimately intubating the cecum itself. The ileocecal valve and appendiceal orifice were normal. The scope was withdrawn from that point and examination throughout showed no sign of abnormality other than some diverticula of the sigmoid and left colon. Retroflexed view of the rectum was normal as well. The scope was removed. The patient was taken to the recovery room in good condition. Electronically Signed By: YA HART MD 06/07/23 0829 PATIENT NAME: MADISON GONZALEZ OPERATIVE REPORT DATE OF : 53 REPORT #: [id number] PHYSICIAN: YA HART MD PCP: QUENTIN SHIN MD REPORT IS CONFIDENTIAL AND NOT TO BE RELEASED WITHOUT AUTHORIZATION [facility] [address] [place], [place] [address] Signed CONCLUDING DIAGNOSIS: No evidence of polyps, colitis, or cancer; scattered diverticula of sigmoid and left colon. PLAN: Recommend high-fiber diet. She will see us back for a conference regarding her neck exploration planned for June 17. MD TEN Marks/ROBBINL /[id number] cc: Quentin Shin MD Copies: QUENTIN SHIN MD ~ Electronically Signed By: YA HART MD 06/07/23 0829 PATIENT NAME: MADISON GONZALEZ OPERATIVE REPORT DATE OF : 53 REPORT #: [id number] PHYSICIAN: YA HART MD PCP: QUENTIN SHIN MD REPORT IS CONFIDENTIAL AND NOT TO BE RELEASED WITHOUT AUTHORIZATION
== END 2023-06-04 14:58 | disposition home or self-care (01) ==
LOC: OPS 09:43 → DS 09:47 → OPS 10:20 → DS 10:30 → OPS 10:30
PROVIDERS: ATTEND Surgery
PROC: 0DJD8ZZ Inspection of Lower Intestinal Tract, Via Natural or Artificial Opening Endoscopic (ICD-10-PCS; principal; 2023-06-04 11:15)
DX: K57.30 Diverticulosis of large intestine without perforation or abscess without bleeding (principal); Z86.010 Personal history of colon polyps
CPT/HCPCS: 99153; G0500; J2250; J3010; J7121

== ENCOUNTER 2024-04-27 11:58 | Emergency (ER) | payer MEDICARE, BC ==
[~2024-04-27] VITALS: Ht 165.1 cm; Wt 79.0 kg
[~2024-04-27 11:58] MED LIST changes: +ATORVASTATIN CA80 MG PO; +DICLOFENAC SODI50 GM TOP; +MELATONIN3 MG PO
[2024-04-27 12:14] LABS: EOSINOPHILS 3.9 % (0-6); HEMATOCRIT 40.4 % (35.0-50.0); HEMOGLOBIN 13.7 g/dL (12.0-18.0); LYMPHOCYTES 36.4 % (24-44); MCH 31.4 (27-36); MCHC 33.8 g/dl (30-36); MCV 92.8 fl (81-99); NEUTROPHILS 50.7 % (39-80); PLATELET COUNT 175 K/uL (140-440); RBC 4.36 M/ul (4.3-5.7); RDW 13.1 (10.5-15.0)
[2024-04-27] MEDS ORDERED: ASPIRIN 81 MG CHEW PO ONE (12:15)
[2024-04-27 12:30] LABS: ALBUMIN 3.9 g/dL (3.4-5.0); ALBUMIN/GLOBULIN RATIO 0.93 (1.1-2.4); BILIRUBIN, TOTAL 0.6 ng/dL (0.2-1.0); BUN/CREATININE RATIO 16.85 (6.0-28.6); CALCIUM 9.9 mg/dL (8.5-10.1); CREATININE, SERUM 0.89 mg/dL (0.55-1.02); MAGNESIUM 2.1 mg/dL (1.8-2.4); PROTEIN, TOTAL 8.1 g/dL (6.4-8.2)
[2024-04-27] MEDS ORDERED: KETOROLAC TROMETHAMINE 30 MG/ML VIAL IV ONE (13:00)
[2024-04-27 14:49] VITALS: BP 149/89
--- NOTE | 2024-04-27 20:36 | EKG ---
[facility] [address] [facility] [place] [address] Signed Normal sinus rhythm Normal ECG No previous ECGs available Confirmed by Yumiko Cruz MD () on 04/27/2024 8:36:31 PM Electronically Signed By: YUMIKO CRUZ MD 04/27/242035 PATIENT NAME: MADISON GONZALEZ Electrocardiogram DATE OF : 53 PHYSICIAN: YUMIKO CRUZ MD REPORT #: [id number] REPORT IS CONFIDENTIAL AND NOT TO BE RELEASED WITHOUT AUTHORIZATION
== END 2024-04-27 14:52 | disposition home or self-care (01) ==
LOC: ED 11:58
PROVIDERS: Emergency Medicine
DX: R07.89 Other chest pain (principal); Z88.8 Allergy status to other drugs, medicaments and biological substances; Z87.891 Personal history of nicotine dependence
CPT/HCPCS: 36415; 71045; 80053; 83735; 84484; 85025; 85379; 93005; 93010; 96374; 99285-25; A9270; J1885

== ENCOUNTER 2024-10-16 12:40 | Day surgery (SDC) | payer MEDICARE, BC ==
[~2024-10-16] VITALS: Ht 165.1 cm; Wt 95.3 kg
[~2024-10-16 12:40] MED LIST changes: +CARAFATE1 GM PO; +IBLOOD GLUCOSE TEST STRIP 1 EA TEST VI PRN; +LACTATED RINGER'S 1,000 ML IV SCH; +LIDOCAINE HCL 1% 5 ML SDV INJ ONE; +MAGNESIUM400 M1 PO; +MIDAZOLAM HCL 5 MG/5 ML VIAL IV PRN; +RISEDRONATE SO150 MG PO; +SYNTHROID25 MCG PO; +TYLENOL EXTRA500 MG PO; +VITAMIN B-12100 MCG PO; +VITAMIN D350 MC3 PO; +ZINC CHELATED50 M1 PO; +ZOVIRAX30 GM TOP; +fentaNYL citrate 100 MCG/2 ML VIAL IV PRN
[2024-10-16 12:57] VITALS: BP 134/72
[2024-10-16] MEDS ORDERED: fentaNYL citrate 100 MCG/2 ML VIAL ONE (13:35)
[2024-10-16] MEDS ORDERED: MIDAZOLAM HCL 5 MG/5 ML VIAL ONE (13:35)
--- NOTE | 2024-10-16 14:17 | NUR ---
10/16/24 Bernie Hansen OXYGEN SATURATION REMAINS 100% ON 3L VIA NC. OXYGEN IS DISCONTINUED AT THIS TIME.
[2024-10-16 14:46] VITALS: BP 118/83
--- NOTE | 2024-10-17 17:24 | OR ---
[facility] [address] [place], [place] [address] Signed DATE OF OPERATION: 10/16/2024 SURGEON: Ya Hart MD PREOPERATIVE DIAGNOSES: 1. Dyspeptic symptoms. 2. Alendronate use. POSTOPERATIVE DIAGNOSIS: Hiatal hernia with low-grade distal esophagitis. No evidence of stricture. PROCEDURE: Esophagogastroduodenoscopy with biopsy. ANESTHESIA: Intravenous sedation; fentanyl 100 mcg and Versed 3 mg. INDICATION: This 68-year-old white woman is a patient of Dr. Quentin Shin. She underwent a parathyroid exploration by me and excision of the parathyroid gland. She continues to be monitored for calcium levels which have been elevated in the past. She was found to be hypothyroid and was given thyroid supplementation. In the meantime, she has had issues of dyspeptic symptoms for which omeprazole and Carafate were prescribed. She was unable to follow the regimen for Carafate due to its complicated nature, but notices the most benefit by taking PPI medication. Upper endoscopy is offered to better characterize her problem. She understands risk of bleeding, infection, and perforation related to upper endoscopy and wished to proceed. FINDINGS: She had a hiatal hernia moderate to large in size. There is no actual ulceration of the stomach or esophagus, though there is mild distal esophagitis. Otherwise, there is certainly no stricture. Stomach and duodenum were normal. CLOtest was negative. There was no evidence of eosinophilic esophagitis in the mid esophagus. PROCEDURE IN DETAIL: The patient was brought to the endoscopy suite, given topical lidocaine hypopharyngeal anesthesia and placed in lateral decubitus position. She was given intravenous sedation with full cardiopulmonary monitoring. A bite block was placed. An Olympus video upper endoscope was passed in the hypopharynx. The vocal cords appeared normal. Scope was advanced into the esophagus, throughout its length it looked reasonably normal without Electronically Signed By: YA HART MD 10/17/24 5582 PATIENT NAME: MADISON GONZALEZ OPERATIVE REPORT DATE OF : 53 REPORT #: [id number] PHYSICIAN: YA HART MD PCP: QUENTIN SHIN MD REPORT IS CONFIDENTIAL AND NOT TO BE RELEASED WITHOUT AUTHORIZATION [facility] [address] [place], [place] [address] Signed sign of ulceration, certainly no Ovalles epithelium or stricture. The scope was passed to the stomach which was insufflated with air. Mucosa appeared normal. Pre-pyloric area was normal. Scope was passed through the pylorus into the duodenum, which was normal. Biopsies were taken of the duodenum to assess for celiac disease. The scope was withdrawn and biopsies then taken of the antrum for both CINDY and pathologic testing. Retroflexed view of GE junction did confirm a hiatal hernia, which was moderate to large in size. Scope was withdrawn and biopsy was then taken of the esophageal mucosa. Has low-grade chronic inflammation but no sign of neoplasm, stricture, or Ovalles's epithelium. Further withdrawal left for biopsy of the mid esophagus. Scope was removed and the patient was taken to the recovery room in good condition. CONCLUDING DIAGNOSIS: Her dyspeptic symptoms are no doubt related to the reflux esophagitis. Would have her continue with PPI medication on a daily basis. If she is unable to take Carafate for whatever reason, as it was problematic for her before that is okay at this point. We will see her back in the office in six weeks more or less and follow up regarding her pathology findings. MD TEN Marks/ROBBINL /[id number] cc: Quentin Shin MD Copies: QUENTIN SHIN MD ~ Electronically Signed By: YA HART MD 10/17/24 1724 PATIENT NAME: MADISON GONZALEZ OPERATIVE REPORT DATE OF : 53 REPORT #: [id number] PHYSICIAN: YA HART MD PCP: QUENTIN SHIN MD REPORT IS CONFIDENTIAL AND NOT TO BE RELEASED WITHOUT AUTHORIZATION
--- NOTE | 2024-10-19 11:08 | PATH ---
[facility] [address] [place], [place] [address] Signed SPECIMEN(S): A DUODENAL BIOPSY SPECIMEN(S): B ANTRUM BIOPSY SPECIMEN(S): C LOWER ESOPHAGEAL BIOPSY SPECIMEN(S): D MIDDLE ESOPHAGEAL BIOPSY SPECIMEN SOURCE: A. DUODENAL BIOPSY B. ANTRUM BIOPSY C. LOWER ESOPHAGEAL BIOPSY D. MIDDLE ESOPHAGEAL BIOPSY CLINICAL HISTORY: Abdominal pain, reflux, hiatal hernia FINAL PATHOLOGIC DIAGNOSIS: A. Duodenum, biopsy: - Small bowel mucosa with no significant pathologic changes B. Stomach, antrum, biopsy: - Gastric antral mucosa with chronic inactive gastritis - Negative for Helicobacter pylori by IHC C. Esophagus, lower, biopsy: - Squamoglandular mucosa with reactive epithelial changes; negative for intestinal metaplasia D. Esophagus, middle, biopsy: - Esophageal squamous mucosa with no significant pathologic changes BRP MICROSCOPIC EXAMINATION: Histologic sections of all submitted blocks are examined by light microscopy. These findings, together with the gross examination, support the pathologic diagnosis. Immunohistochemical and/or in situ hybridization studies if performed in this case included appropriate positive controls that reacted as expected. This test was developed and its performance characteristics determined by [facility]. It has not been cleared or approved by the U.S. Food and Drug Administration. The FDA has determined that such clearance or approval is not necessary. This test is used for clinical purposes. It should not be regarded as investigational or for research. [facility] is certified under the Clinical Laboratory Improvement Amendments of 1988 (CLIA) as qualified to perform high complexity clinical PATIENT NAME: MADISON GONZALEZ PATHOLOGY DATE OF : 53 REPORT #: [id number] PHYSICIAN: JAMAICA FERGUSON PCP: QUENTIN SEVILLA MD REPORT IS CONFIDENTIAL AND NOT TO BE RELEASED WITHOUT AUTHORIZATION [facility] [address] [place], [place] [address] Signed laboratory testing. GROSS DESCRIPTION: A. The specimen, labeled and designated "Johnny, duodenum biopsy," is received in formalin and consists of two peraza soft tissue fragments, ranging from 0.2 cm. Entirely submitted in (A1). B. The specimen, labeled and designated "Johnny, antrum biopsy," is received in formalin and consists of two peraza soft tissue fragments, ranging from 0.2 cm. Entirely submitted in (B1). C. The specimen, labeled and designated "Johnny, lower esophagus biopsy," is received in formalin and consists of three peraza soft tissue fragments, ranging from 0.1-0.3 cm. Entirely submitted in (C1). D. The specimen, labeled and designated "Johnny, middle esophagus biopsy," is received in formalin and consists of two peraza soft tissue fragments, ranging from 0.1-0.3 cm. Entirely submitted in (D1). JS (under the direct supervision of a pathologist) The Gross Description was prepared using a voice recognition system. The report was reviewed for accuracy; however, sound-alike word errors, addition and/or deletions may occur. If there is any question about this report, please contact Client Services. ADDITIONAL NOTES: Immunohistochemical and/or in situ hybridization studies if performed in this case included appropriate positive controls that reacted as expected. This test was developed and its performance characteristics determined by [facility]. It has not been cleared or approved by the U.S. Food and Drug Administration. The FDA has determined that such clearance or approval is not necessary. This test is used for clinical purposes. It should not be regarded as investigational or for research. [facility] is certified under the Clinical Laboratory Improvement Amendments of 1988 (CLIA) as qualified to perform high complexity clinical laboratory testing. PERFORMING LABORATORY: Technical component was performed by [facility], [address] [place] [id number] (CLIA# [id number]). Professional interpretation was performed by [facility], [address] [place] [id number] (CLIA#: [id number]). PATIENT NAME: MADISON GONZALEZ PATHOLOGY DATE OF : 53 REPORT #: [id number] PHYSICIAN: JAMAICA FERGUSON PCP: QUENTIN SEVILLA MD REPORT IS CONFIDENTIAL AND NOT TO BE RELEASED WITHOUT AUTHORIZATION [facility] [address] [place] [address] [place], [place] [address] Signed Diagnostician: Hola Gutierrez MD Pathologist Electronically Signed 10/19/2024 Copies: ~ PATIENT NAME: MADISON GONZALEZ PATHOLOGY DATE OF : 53 REPORT #: [id number] PHYSICIAN: JAMAICA FERGUSON PCP: QUENTIN SEVILLA MD REPORT IS CONFIDENTIAL AND NOT TO BE RELEASED WITHOUT AUTHORIZATION
== END 2024-10-16 14:52 | disposition home or self-care (01) ==
LOC: DS 12:40
PROVIDERS: ATTEND Surgery
PROC: 0DB68ZX Excision of Stomach, Via Natural or Artificial Opening Endoscopic, Diagnostic (ICD-10-PCS; 2024-10-16)
PROC: 0DB98ZX Excision of Duodenum, Via Natural or Artificial Opening Endoscopic, Diagnostic (ICD-10-PCS; principal; 2024-10-16 14:00)
DX: K29.50 Unspecified chronic gastritis without bleeding (principal); K21.00 Gastro-esophageal reflux disease with esophagitis, without bleeding; K44.9 Diaphragmatic hernia without obstruction or gangrene; K81.1 Chronic cholecystitis; M81.0 Age-related osteoporosis without current pathological fracture; E03.9 Hypothyroidism, unspecified; E89.2 Postprocedural hypoparathyroidism; Z79.83 Long term (current) use of bisphosphonates; Z79.890 Hormone replacement therapy; Z79.899 Other long term (current) drug therapy
CPT/HCPCS: G0500; J2250; J3010; J7121